=== PATIENT | male | born 1930 | race Caucasian/White ===

== ENCOUNTER 2019-06-02 07:57 | Inpatient (IN) | payer OTHER ==
[2019-06-02] VITALS (8 sets, daily range): BP systolic 68–138; BP diastolic 46–89
[~2019-06-02] VITALS: Ht 180.3 cm; Wt 81.0 kg
[2019-06-02 08:30] LABS: BASO % 0.5 % (0.0-1.0); EOS # 0.7 10*3/uL (0.0-0.4); EOS % 8.6 % (1.0-4.0); HEMATOCRIT 33.9 % (42.0-52.0); HEMOGLOBIN 10.8 g/dl (14.0-18.0); LYMPH # 1.4 10*3/uL (1.3-4.4); LYMPH % 16.1 % (27.0-41.0); MEAN CELL VOLUME 99.1 fl (80.0-94.0); MEAN CORPUSCULAR HGB 31.6 pg (27.0-31.0); MEAN CORPUSCULAR HGB CONC 31.9 g/dl (33.0-37.0); MEAN PLATELET VOLUME 9.3 fl (9.6-12.3); MONO # 0.7 10*3/uL (0.1-1.0); MONO % 7.9 % (3.0-9.0); NEUT # 5.7 10*3/uL (2.3-7.9); NEUT % 65.9 % (47.0-73.0); PLATELET COUNT AUTOMATED 178 10*3/uL (130-400); RED BLOOD COUNT 3.42 10*6/uL (4.50-5.90); RED CELL DISTRI WIDTH 15.9 % (0-14.5); WHITE BLOOD COUNT 8.6 10*3/uL (4.8-10.8)
[2019-06-02 08:42] LABS: ACT PARTIAL THROMBO TIME 26.3 SECONDS (20.0-32.1); INTERNATIONAL NORM RATIO 1.1 (2.0-3.5)
[2019-06-02 08:47] LABS: ALBUMIN 3.3 gm/dl (3.1-4.5); ALKALINE PHOSPHATASE 80 U/L (45-117); BUN 40 mg/dl (7-24); CHLORIDE 121 mmol/L (98-107); CREATININE 1.26 mg/dL (0.70-1.30); SGOT/AST 17 IU/L (3-35); SGPT/ALT 19 U/L (12-78); SODIUM 150 mmol/L (136-145); TOTAL PROTEIN 6.9 gm/dL (6.4-8.2)
--- NOTE | 2019-06-02 08:49 | NUR ---
CRITICAL LAB RESULTS CALLED. TROPONIN IS 0.097. DR ROSAS NOTIFIED.
[2019-06-02 08:50] LABS: TROPONIN I 0.097 ng/ml (<0.045)
--- NOTE | 2019-06-02 09:16 | NUR ---
herrera cath insert attempt by pt's nurse WAS UNSUCCESSFUL. I DID ATTEMPT A SECOND TIME AND MET WITH SLIGHT RESISTANCE BUT THEN QUICKLY DID HAVE A LARGE VOLUME OF YELLOW URINE WITH FLOATING FLECKS OF RED ISSUE INTO TUBING. NO OBJECTIVE SIGNS OF DISTRESS. AFTER BALLOON WAS INFLATED THERE WAS SMALL AMOUNT OF URINE LEAKAGE AROUND THE CATH WHICH WAS AT THAT TIME ASSUMED TO BE FROM THE DISTENDED BLADDER I DID PALPATE PRIOR TO CATH INSERTION. DESPITE THIS ASSUMPTION, I DID SUGGEST TO PT'S NURSE THAT ONCE HER URINE SPECIMENT FOR TESTING WAS OBTAINED THAT SHE REMOVE THE HERRERA. DR ROSAS OVERRULED THIS AND ORDERED IT BE LEFT IN PLACE.
[2019-06-02 09:30] LABS: BILIRUBIN NEGATIVE (NEGATIVE); BLOOD 3+ (NEGATIVE); CLARITY SL CLOUDY (CLEAR); COLOR YELLOW (YELLOW); GLUCOSE NEGATIVE (NEGATIVE); KETONE NEGATIVE (NEGATIVE); LEUKO ESTERASE NEGATIVE (NEGATIVE); NITRITE NEGATIVE (NEGATIVE); SPECIFIC GRAVITY 1.025 (1.005-1.030)
--- NOTE | 2019-06-02 09:31 | NUR ---
PATIENT HAS LARGE HEMATOMA THAT EXTENDS FROM GROIN AREA TO BELOW THE KNEE AREA MEDIAL SIDE PURPLE IN COLOR AND EDEMA NOTED IN MIDDLE ABOUT 10CM IN DIAMETER.
[2019-06-02 09:36] LABS: RBC TNTC rbc/hpf (0-2)
--- NOTE | 2019-06-02 10:11 | NUR ---
DR ROSAS IN SPEAKING WITH FAMILY AT THIS TIME.
--- NOTE | 2019-06-02 11:20 | NUR ---
A 88, admitted to , under the services of Dr. FLORENTINO JACOBS,ANTHONY Keating with a diagnosis of HYPERNATREMIA,ELEVATED TROPONIN. Chief complaint is FALL. Patient arrived via stretcher from ER. Monitor applied. Initial assessment completed. Vital signs taken and recorded. DR. FLORENTINO JACOBS,ANTHONY Keating notified of admission to the unit. Orders received. See assessment for past medical history, medications and allergies. Patient and/or family oriented to unit. [facility] visitation policy reviewed. Clothing/patient valuable form completed. JOSE DOUGLASS
--- NOTE | 2019-06-02 11:35 | NUR ---
BEDSIDE REPORT GIVEN TO ANU HUBBARD. NO CHANGE IN PATIENT STATUS.
[2019-06-02] MEDS ORDERED: NAMENDA10 MG PO (11:45)
[2019-06-02] MEDS ORDERED: FEROSUL325 MG PO (11:46)
[2019-06-02] MEDS ORDERED: ERGOCALCIFEROL1 GM PO (11:47)
[2019-06-02] MEDS ORDERED: MIRTAZAPINE15 M2 PO (11:48)
[2019-06-02] MEDS ORDERED: NORVASC10 MG PO (11:49)
[2019-06-02] MEDS ORDERED: HALOPERIDOL1 MG PO (11:49)
[2019-06-02] MEDS ORDERED: INTRINSI B12-F1 EACH PO (11:51)
[2019-06-02] MEDS ORDERED: FLOMAX0.4 MG PO (11:52)
[2019-06-02] MEDS ORDERED: ARICEPT10 M1 PO (11:52)
[2019-06-02] MEDS ORDERED: ASPIRIN ADULT L81 M1 PO (11:53)
[2019-06-02] MEDS ORDERED: LORAZEPAM0.5 MG PO (11:54)
[2019-06-02] MEDS ORDERED: NAPROSYN500 MG PO (11:55)
--- NOTE | 2019-06-02 20:14 | NUR ---
DR GOOD CALLED WITH BP 68/46, NEW ORDERS RECEIVED. SEE EMAR.
--- NOTE | 2019-06-02 21:54 | NUR ---
DR GOOD CALLED WITH BP 88/60 AFTER 1 L NS GIVEN. MAINTAIN D5 AT 80CC/HR. DISCONTINUE NORVASC. NO OTHER ORDERS AT THIS TIME. PATIENT IS DNR-CC. WILL MONITOR.
--- NOTE | 2019-06-02 22:33 | NUR ---
PATIENT EYES CLOSED AND PATIENT NOT OPENING EYES AT THIS TIME. UNABLE TO TAKE SCHEDULED MEDICATIONS AT THIS TIME. PATIENT MUMBLING AND MOVING WHEN TAKING BLOOD PRESSURE. WILL CONTNUE TO MONITOR.
[2019-06-03] VITALS: BP 111/65
--- NOTE | 2019-06-03 02:00 | NUR ---
PATIENT RESTING WITH EYES CLOSED. RESPIRATIONS EASY AND UNLABORED. HR REMATINS AFIB 40'S-50'S. BED ALARM ON AND CALL LIGHT WITHIN REACH. WILL MONITOR.
[2019-06-03 04:00] VITALS: BP 120/78
--- NOTE | 2019-06-03 04:00 | NUR ---
PATIENT RESTING WITH EYES CLOSED. RESPIRATIONS EASY AND UNLABORED. HR REMAINS 40'S-50'S ON CM. BED ALARM ON AND CALL LIGHT WITHIN REACH. ALL FOUR BEDRAILS REMAIN UP PER FAMILY REQUEST. WILL MONITOR.
--- NOTE | 2019-06-03 05:35 | NUR ---
24 HR chart check completed.
[2019-06-03 06:35] LABS: BASO % 0.5 % (0.0-1.0); BUN 32 mg/dl (7-24); CHLORIDE 115 mmol/L (98-107); CREATININE 1.08 mg/dL (0.70-1.30); EOS # 0.7 10*3/uL (0.0-0.4); EOS % 7.7 % (1.0-4.0); HEMATOCRIT 30.6 % (42.0-52.0); LYMPH # 1.8 10*3/uL (1.3-4.4); LYMPH % 21.2 % (27.0-41.0); MEAN CELL VOLUME 98.1 fl (80.0-94.0); MEAN CORPUSCULAR HGB 32.1 pg (27.0-31.0); MEAN CORPUSCULAR HGB CONC 32.7 g/dl (33.0-37.0); MEAN PLATELET VOLUME 9.9 fl (9.6-12.3); MONO # 0.8 10*3/uL (0.1-1.0); MONO % 9.2 % (3.0-9.0); NEUT # 5.1 10*3/uL (2.3-7.9); NEUT % 60.3 % (47.0-73.0); PLATELET COUNT AUTOMATED 168 10*3/uL (130-400); POTASSIUM 3.9 mmol/L (3.5-5.1); RED BLOOD COUNT 3.12 10*6/uL (4.50-5.90); RED CELL DISTRI WIDTH 15.7 % (0-14.5); SODIUM 143 mmol/L (136-145); WHITE BLOOD COUNT 8.5 10*3/uL (4.8-10.8)
[2019-06-03 08:00] VITALS: BP 107/80
--- NOTE | 2019-06-03 10:43 | NUR ---
PHYSICAL THERAPY PT SCREEN COMPLETED TODAY BASED ON REFERRAL AND PER CHART REVIEW AND DISCUSSION WITH TH[facility]APIST AT [facility] WAS NON [facility]ORY AND A [facility] AT THE [facility] AND THEREFORE BASED ON ASSESSMENT TODAY NO PT SERVICES ARE INDICATED AT THIS TIME. HE WAS ON OT SERVICES AT THE [facility] FOR W/C POSITIONING AND TO GET HIS W/C MODIFED TO IMPROVE POSITIONING BUT HE IS MAX TO TD FOR ALL MOBILITY. THANK YOU FOR REFERRAL PRABHU RUCKER PT
[2019-06-03 12:00] VITALS: BP 120/77
[2019-06-03 16:00] VITALS: BP 107/69
[2019-06-03 20:00] VITALS: BP 104/62; BP 92/65
[2019-06-04] VITALS: BP 97/77
--- NOTE | 2019-06-04 04:29 | NUR ---
PATIENT RESTING WITH EYES CLOSED. RESPIRATIONS EASY AND UNLABORED. CALL LIGHT WITHIN REACH. WILL MONITOR.
--- NOTE | 2019-06-04 06:00 | NUR ---
DRESSING CHANGED PER ORDERS.
--- NOTE | 2019-06-04 06:31 | NUR ---
24 HR chart check completed.
[2019-06-04 06:51] LABS: BUN 29 mg/dl (7-24); CHLORIDE 111 mmol/L (98-107); CREATININE 0.96 mg/dL (0.70-1.30); POTASSIUM 3.9 mmol/L (3.5-5.1); SODIUM 140 mmol/L (136-145)
--- NOTE | 2019-06-04 07:41 | NUR ---
MICHAEL LONG [id number] Please refer to the physician's history and physical for past medical history, comorbid conditions, and allergies. Diagnosis: HYPERNATREMIA SUBDURAL HEMORRHAGE ELEVATED TROPONI Con Score: 13,MODERATE RISK WOUND DESCRIPTIONS: Wound Number: 1 Location of the wound: upper forehead Type of wound: traumatic Thickness: Partial Size: 1.1cm x 1.1cm x <0.1cm Tunneling: none Undermining: none Sinus Tract: none Presence of Exudate: none Amount: None Color: Red Odor: None Periwound Skin Appearance: ecchymotic Wound edges: approximated Pain (associated with wound): none at time of assessment How does patient state this happened? pt stated he fell Wound Number: 2 Location of the wound: lower forehead Type of wound: traumatic Thickness: Partial Size: 0.2cm x 0.8cm x <0.1cm Tunneling: none Undermining: none Sinus Tract: none Presence of Exudate: none Amount: None Color: Red Odor: None Periwound Skin Appearance: Normal Wound edges: approximated Pain (associated with wound): none at time of assessment How does patient state this happened? pt stated he fell Wound Number: 3 Location of the wound: left lower arm proximal Type of wound: skin tear Thickness: Partial Size: 3.5cm x 3.7cm x 0.1cm Tunneling: none Undermining: none Sinus Tract: none Presence of Exudate: Serosanguineous Amount: Light Color: Red Odor: None Periwound Skin Appearance: Normal Wound edges: approximated Pain (associated with wound): none at time of assessment How does patient state this happened? pt stated he fell Wound Number: 4 Location of the wound: left lower arm distal Type of wound: skin tear Thickness: Partial Size: 1.7cm x 0.2cm x 0.1cm Tunneling: none Undermining: none Sinus Tract: none Presence of Exudate: Serosanguineous Amount: Light Color: Red Odor: None Periwound Skin Appearance: Normal Wound edges: approximated Pain (associated with wound): none at time of assessment How does patient state this happened? pt stated he fell Surface the patient is resting on: Isoflex SKIN PREVENTION RECOMMENDATION: 1. Pressure redistribution support surface as appropriate 2. Elevate heels 3. Remove boots/TEDS every shift and reapply 4. Head of bed 30 degrees as tolerated 5. Assess nutrition and hydration 6. Manage moisture 7. Avoid the use of containment devices while in bed 8. Use absorptive products on surfaces limit layers of linens on bed 9. Turn and reposition every 1-2 hours in bed and every 1 hour in chair as tolerated 10. Weight shifts every 15 minutes while up in chair 11. Offloading with pillows or device to keep heels elevated off bed 12. Monitor skin at least every shift 13. Inspect under medical devices twice a day WOUND TREATMENT RECOMMENDATIONS: D/C stage 1 guidelines D/C skin tear guidelines Skin tear guidelines cleanse left forearm proximal and left forearm distal with nss and apply sureprep around the wound versatel to wound bed hydrogel to wound bed and cover with optifoam gentle.
[2019-06-04 07:49] VITALS: BP 116/88
--- NOTE | 2019-06-04 08:02 | NUR ---
PT IS RESTING AND WAS PLEASANT DURING VITALS. PT MUMBLES WHEN SPEAKING. JAYLIN FIGUEROA SPCC
--- NOTE | 2019-06-04 09:00 | NUR ---
Edger Machine Operator in to see patient. He is currently eating breakfast with assistance. His son is at the bedside. He is a LTC resident at [facility] and plans to return there upon discharge from the hospital. systems requirements planner following.
--- NOTE | 2019-06-04 11:05 | NUR ---
updated patient clincials faxed to [facility] for review. patient is fci and ok to return when medically stable for discharge.
[2019-06-04 11:33] VITALS: BP 94/52
[2019-06-04] MEDS ORDERED: RIVASTIGMINE TAR3 M1 PO (11:37)
[2019-06-04] MEDS ORDERED: NAMENDA-5 PO (11:37)
--- NOTE | 2019-06-04 11:37 | NUR ---
pt resting on left side with a wedge to prevent breakdown. pt is pleasant and coorperative. Elizabeth Conte SPNRCC
--- NOTE | 2019-06-04 12:08 | NUR ---
Patient is discharged to return to [facility]; transportation scheduled for 1:30 with [employer]. NH, nursing and son all notified.
--- NOTE | 2019-06-04 13:15 | NUR ---
PT HAD A LARGE LIQUID BROWN STOOL, BAGLEY REMOVED FOR DISCHARGE, IV D/C'D IN RIGHT ANTECUBITAL, SITE ASYMPTOMATIC, DRESSING DRY AND INTACT TO LEFT FOREARM JAYLIN JAQUEZN [facility]
--- NOTE | 2019-06-04 13:24 | NUR ---
UNABLE TO DO PICTURES PATIENT UNCOOPERATIVE. PATIENT DISCHARGED BACK TO [facility] VIA AMBULANCE LEFT A MESSAGE FOR SON ON HIS CELL PHONE.
--- NOTE | 2019-06-04 13:25 | NUR ---
PT DISCHARGED GOING TO [facility] BY AMBULANCE. JAYLIN FIGUEROA SPCC
--- NOTE | 2019-06-04 13:28 | NUR ---
NURSE TO JOYCE REPORT GIVEN.
--- NOTE | 2019-06-04 15:30 | NUR ---
Nursing screen received and patient discharged to SNF before screen could be completed. Thank you. Delaney Khan OTR/L
== END 2019-06-04 13:25 | DRG 64 ==
LOC: ED 07:57 → 4E 10:19 → EDHOLD 10:19 → 4E 10:48
PROVIDERS: Emergency Medicine; ADMIT Internal Medicine
DX: I62.00 Nontraumatic subdural hemorrhage, unspecified (principal); G93.41 Metabolic encephalopathy; E87.0 Hyperosmolality and hypernatremia; N17.9 Acute kidney failure, unspecified; I10 Essential (primary) hypertension; F02.80 Dementia in other diseases classified elsewhere, unspecified severity, without behavioral disturbance, psychotic disturbance, mood disturbance, and anxiety; R79.89 Other specified abnormal findings of blood chemistry; S00.83XA Contusion of other part of head, initial encounter; S51.812A Laceration without foreign body of left forearm, initial encounter; S70.10XA Contusion of unspecified thigh, initial encounter; Z66 Do not resuscitate; Z51.5 Encounter for palliative care; R41.0 Disorientation, unspecified; G89.29 Other chronic pain; N40.1 Benign prostatic hyperplasia with lower urinary tract symptoms; R33.8 Other retention of urine; G30.1 Alzheimer's disease with late onset; E55.9 Vitamin D deficiency, unspecified; R31.9 Hematuria, unspecified; Z79.82 Long term (current) use of aspirin; W18.39XA Other fall on same level, initial encounter; Z79.899 Other long term (current) drug therapy; Y93.89 Activity, other specified; Y92.89 Other specified places as the place of occurrence of the external cause; Y99.8 Other external cause status